=== PATIENT | female | born 1985 | race Caucasian/White ===

== ENCOUNTER 2022-02-08 05:47 | Inpatient (IN) ==
--- NOTE | 2022-02-08 06:21 | Emergency Department Note ---
Impression & Plan Suicidal ideation, Self-injurious behavior The case was signed out to Dr. Soler at change of shift ED Provider Note NAME: CHIQUITA ABREU AGE: 37 SEX: F ARRIVES VIA: Police Cruiser INFORMANT: [Patient] ED PROVIDER(S): Eliza Craig DO CHIEF COMPLAINT: Suicidal ideation PLAN: Disposition: The case was signed out at change of shift Condition: Fair MEDICAL DECISION MAKING: This is a 37-year-old female patient who presents to the emergency department tonight with police on a 302 warrant. The patient called crisis describing suicidal thoughts. The police were called and she was transported here. The superficial self-inflicted lacerations to the left forearm did not warrant any repair or specific medical treatment. The patient was medically cleared here in the emergency department and evaluated by the ED psychiatric case managers. We feel the patient warrants admission to an inpatient psychiatric facility. Triage Nursing notes reviewed and agree with them. I reviewed the 302. Vital Signs: reviewed and remarkable for [no significant abnormalities] Differential diagnosis: Suicidal ideation, mood disorder, thought disorder Diagnostics interpreted by me: Laboratory studies: [See below] [] HPI: 37/F arrives for evaluation of suicidal ideation. The patient describes having a rough night at work. 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. She left work early and returned to her hotel. She felt depressed and used an X-Acto knife to self-harm on her left forearm. The patient was having suicidal thoughts and contacted the National suicide hotline which referred her to [facility] crisis. They did an evaluation of the pa tient and contacted [facility] crisis which contact the [place] police to issue a 302 warrant. ROS: See above HPI for pertinent positives & negatives. A total of 10 systems reviewed and were otherwise negative. 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 HOME MEDICATIONS:See list ALLERGIES:None VITALS:See Below PHYSICAL EXAMINATION: HEENT: Head - normocephalic and atraumatic. Pupils are equal, round, and reactive to light. Extraocular eye muscles are intact, and sclera are anicteric. Nose - moist nasal mucosa without discharge. Mouth - moist buccal mucosa. Oropharynx is nonerythematous and there is no tonsillar exudate or edema noted. Neck: Supple; no cervical lymphadenopathy appreciated. Heart: Regular rate and rhythm. There is a normal S1 and S2 with no murmurs, clicks, or gallops appreciated. Lungs: Clear to auscultation bilaterally with no wheezes, rales, or rhonchi. Abdomen: Soft, completely nontender, nondistended, with good bowel sounds. There are no palpable pulsatile masses or hepatosplenomegaly. There is no guarding, rigidity, or rebound noted. Extremities: Superficial lacerations in the ventral aspect of the left forearm. There are easily palpable peripheral pulses. Skin: warm and dry with good turgor and no rashes. Psych: The patient seems somewhat depressed and angry that she is here. She admits to having suicidal thoughts earlier tonight but does not feel suicidal at this time. ED COURSE: Times/Reassessments: 555: The patient was evaluated in room A5. A complete history and physical was performed. Laboratory studies were drawn as above. The patient was felt to be medically cleared. The patient was evaluated by the ED psychiatric case managers. They are discussing whether the patient will admit herself voluntarily and are reviewing the 302 petitioning statement. The case will be signed out to Dr. Soler at change of shift. Eliza Craig, DO Past Med/Surg History Social History (System 02/08/22 @ 07:47 by Rubina Tadeo) Smoking Status: Never smoker Preferred Language: Micronesian Feels Safe at Home: Yes Home Meds Home Medications Medication Instructions Recorded Confirmed bupropion HCl 300 mg 24 hr tablet, 300 mg PO DAILY 02/08/22 02/08/22 extended release (Wellbutrin XL) clonazepam 0.5 mg tablet (Klonopin) 0.5 mg PO DIRECTED PRN 02/08/22 02/08/22 cyclobenzaprine 10 mg tablet 10 mg PO DIRECTED PRN MDD 30 02/08/22 02/08/22 dextroamphetamine-amphetamine 10 10 mg PO DIRECTED PRN 02/08/22 02/08/22 mg tablet (Adderall) dextroamphetamine-amphetamine ER 25 mg PO DAILY 02/08/22 02/08/22 25 mg 24hr capsule,extend release (Adderall XR) duloxetine 60 mg capsule,delayed 60 mg PO DAILY 02/08/22 02/08/22 release (Cymbalta) hydroxyzine HCl 50 mg tablet 50 mg PO TID PRN MDD 150 02/08/22 02/08/22 metoprolol succinate 25 mg 25 mg PO QPM 02/08/22 02/08/22 tablet,extended release 24 hr (Toprol XL) pantoprazole 40 mg tablet,delayed 40 mg PO DAILY 02/08/22 02/08/22 release Results & Data (ED) Vital Signs Vital Signs - 24 hr 02/08/22 06:02 02/08/22 06:37 02/08/22 08:07 Temperature 37.1 C 36.9 C Temperature Source Oral Oral Pulse Rate 97 H Pulse Rate [Finger] 107 H Respiratory Rate 20 18 18 Blood Pressure 138/89 Blood Pressure [Right Arm] 150/92 H Blood Pressure Mean 105 Blood Pressure Mean [Right Arm] 111 Pulse Oximetry 97 99 Oxygen Delivery Method Room Air Sepsis Recent Fever Within 48 Hours No Sepsis New/Unexplained Change in Mental Status No Sepsis Action Taken by Nursing No Action Required Laboratory Data Result diagrams: 02/08/22 06:30 02/08/22 06:30 Lab Results 02/08/22 02/08/22 02/08/22 Range/Units 06:30 06:30 06:30 WBC 9.72 (4.8-10.8) K/uL RBC 5.16 (4.2-5.4) M/uL Hgb 13.2 (12.0-16.0) g/dL Hct 41.0 (37-47) % MCV 79.5 L (80-100) fL MCH 25.6 (25-34) pg MCHC 32.2 (32-36) g/dL RDW Std Deviation 40.0 (36.4-46.3) fL RDW Coeff of Wendy 13.8 (11.5-14.5) % Plt Count 374 (130-400) K/uL MPV 9.3 (7.4-10.4) fL Immature Gran % (Auto) 0.3 % Neut % (Auto) 65.0 % Lymph % (Auto) 26.6 % Schley % (Auto) 6.0 % Eos % (Auto) 1.9 % Baso % (Auto) 0.2 % Neut # (Auto) 6.32 (1.4-6.5) K/uL Lymph # (Auto) 2.59 (1.2-3.4) K/uL Schley # (Auto) 0.58 (0.11-0.59) K/uL Eos # (Auto) 0.18 (0-0.5) K/uL Baso # (Auto) 0.02 (0-0.2) K/uL Immature Gran # (Auto) 0.03 H (0.00-0.02) K/uL Sodium 139 (136-145) mmol/L Potassium 3.5 (3.5-5.1) mmol/L Chloride 106 (98-107) mmol/L Carbon Dioxide 27 (21-32) mmol/L Anion Gap 6 (3-11) BUN 6 (6-23) mg/dl Creatinine 0.72 (0.6-1.2) mg/dl Est Cr Clr Drug Dosing 114.1 ml/min Est GFR ( Amer) 125.8 ml/min Est GFR (Non-Af Amer) 108.5 ml/min BUN/Creatinine Ratio 8.3 L (10-20) Glucose 95 (70-99(Fasting)) mg/dl Calcium 9.1 (8.5-10.1) mg/dl Total Bilirubin 0.5 (0.2-1.0) mg/dl AST 12 L (13-39) U/L ALT 10 (7-52) U/L Alkaline Phosphatase 82 (34-104) U/L Total Protein 6.9 (6.0-8.3) gm/dl Albumin 4.3 (3.4-5.0) gm/dl Globulin 2.6 (2.5-4.0) gm/dl Albumin/Globulin Ratio 1.7 (0.9-2) TSH 1.488 (0.300-4.500) uIu/ml Salicylates (3.0-30) mg/dl Acetaminophen (10-30) ug/ml Ethyl Alcohol mg/dL (<10.0) mg/dl SARS-CoV-2, RNA, NAAT (NEGATIVE) 02/08/22 02/08/22 02/08/22 Range/Units 06:30 06:30 06:30 WBC (4.8-10.8) K/uL RBC (4.2-5.4) M/uL Hgb (12.0-16.0) g/dL Hct (37-47) % MCV (80-100) fL MCH (25-34) pg MCHC (32-36) g/dL RDW Std Deviation (36.4-46.3) fL RDW Coeff of Wendy (11.5-14.5) % Plt Count (130-400) K/uL MPV (7.4-10.4) fL Immature Gran % (Auto) % Neut % (Auto) % Lymph % (Auto) % Schley % (Auto) % Eos % (Auto) % Baso % (Auto) % Neut # (Auto) (1.4-6.5) K/uL Lymph # (Auto) (1.2-3.4) K/uL Schley # (Auto) (0.11-0.59) K/uL Eos # (Auto) (0-0.5) K/uL Baso # (Auto) (0-0.2) K/uL Immature Gran # (Auto) (0.00-0.02) K/uL Sodium (136-145) mmol/L Potassium (3.5-5.1) mmol/L Chloride (98-107) mmol/L Carbon Dioxide (21-32) mmol/L Anion Gap (3-11) BUN (6-23) mg/dl Creatinine (0.6-1.2) mg/dl Est Cr Clr Drug Dosing ml/min Est GFR ( Amer) ml/min Est GFR (Non-Af Amer) ml/min BUN/Creatinine Ratio (10-20) Glucose (70-99(Fasting)) mg/dl Calcium (8.5-10.1) mg/dl Total Bilirubin (0.2-1.0) mg/dl AST (13-39) U/L ALT (7-52) U/L Alkaline Phosphatase (34-104) U/L Total Protein (6.0-8.3) gm/dl Albumin (3.4-5.0) gm/dl Globulin (2.5-4.0) gm/dl Albumin/Globulin Ratio (0.9-2) TSH (0.300-4.500) uIu/ml Salicylates < 3.0 L (3.0-30) mg/dl Acetaminophen < 3 L (10-30) ug/ml Ethyl Alcohol mg/dL < 10.0 (<10.0) mg/dl SARS-CoV-2, RNA, NAAT NEGATIVE (NEGATIVE) Discharge Plan Visit Data Chief Complaint: Mental Health Evaluation Stated Complaint: MHE ED Provider: Eliza Craig Discharge Problem: Suicidal ideation, Self-injurious behavior Forms Stand Alone Forms: [facility], [facility], Suicide Prevention Resources Prescriptions Prescriptions: No Action bupropion HCl [Wellbutrin XL] 300 mg tablet extended release 24 hr 300 mg PO DAILY RF: 0 hydroxyzine HCl 50 mg tablet 50 mg PO TID MDD 150 PRN (Reason: anxiety) RF: 0 pantoprazole 40 mg tablet,delayed release (DR/EC) 40 mg PO DAILY RF: 0 duloxetine [Cymbalta] 60 mg capsule,delayed release(DR/EC) 60 mg PO DAILY RF: 0 dextroamphetamine-amphetamine [Adderall XR] 25 mg capsule,extended release 24hr 25 mg PO DAILY RF: 0 dextroamphetamine-amphetamine [Adderall] 10 mg tablet 10 mg PO DIRECTED PRN (Reason: See Pharmacy Information) RF: 0 clonazepam [Klonopin] 0.5 mg tablet 0.5 mg PO DIRECTED PRN (Reason: Anxiety) RF: 0 cyclobenzaprine 10 mg tablet 10 mg PO DIRECTED MDD 30 PRN (Reason: Muscle Spasm) RF: 0 metoprolol succinate [Toprol XL] 25 mg tablet extended release 24 hr 25 mg PO QPM RF: 0 Referrals Referrals: PCP,NO [Physician] -
[2022-02-08 06:59] LABS: Basophils # (auto) 0.02 K/uL (0-0.2); Basophils % (auto) 0.2 %; Eosinophils # (auto) 0.18 K/uL (0-0.5); Eosinophils % (auto) 1.9 %; Hemoglobin 13.2 g/dL (12.0-16.0); Immature Granulocytes # (auto) 0.03 K/uL (0.00-0.02); Immature Granulocytes % (auto) 0.3 %; Lymphocytes # (auto) 2.59 K/uL (1.2-3.4); Lymphocytes % (auto) 26.6 %; Mean Corpuscular Hemoglobin 25.6 pg (25-34); Mean Corpuscular Hgb Conc 32.2 g/dL (32-36); Mean Corpuscular Volume 79.5 fL (80-100); Mean Platelet Volume 9.3 fL (7.4-10.4); Monocytes # (auto) 0.58 K/uL (0.11-0.59); Neutrophils # (auto) 6.32 K/uL (1.4-6.5); Platelet Count 374 K/uL (130-400); RDW Coefficient of Variation 13.8 % (11.5-14.5); Red Blood Count 5.16 M/uL (4.2-5.4); White Blood Count 9.72 K/uL (4.8-10.8)
[2022-02-08 07:17] LABS: Acetaminophen < 3 ug/ml (10-30); Salicylate < 3.0 mg/dl (3.0-30)
[2022-02-08 07:22] LABS: Albumin Globulin Ratio 1.7 (0.9-2); Albumin Level 4.3 gm/dl (3.4-5.0); BUN Creatinine Ratio 8.3 (10-20); Bilirubin,Total 0.5 mg/dl (0.2-1.0); Calcium 9.1 mg/dl (8.5-10.1); Creatinine Clr Calc Pharmacy 114.1 ml/min; Est GFR (African American) 125.8 ml/min; Est GFR (Non-African American) 108.5 ml/min; Globulin 2.6 gm/dl (2.5-4.0); Potassium 3.5 mmol/L (3.5-5.1); Total Protein 6.9 gm/dl (6.0-8.3)
[2022-02-08 10:05] LABS: Appearance Urine Clear (Clear); Bacteria Urine Automated Negative (Negative); Bilirubin Urine Negative (Negative); Blood Urine Negative (Negative); Color Urine Yellow; Glucose Urine UA Negative (Negative); Ketones Urine Negative (Negative); Leukocyte Esterase Urine Trace (Negative); Nitrite Urine Negative (Negative); Protein Urine Negative (Negative); RBC Urine Automated 0-4 /hpf (0-4); Urobilinogen Urine Negative (Negative)
[2022-02-08] MEDS ORDERED: ACETAMINOPHEN 500 MG TAB PO STA (10:48)
[2022-02-08 10:49] LABS: Amphetamines+Metham, Urine Neg (Neg); Barbiturates, Urine Neg (Neg); Benzodiazepine, Urine Neg (Neg); Cocaine, Urine Neg (Neg); MDMA (Ecstacy), Urine Pos (Neg); Methadone, Urine Neg (Neg); Opiate, Urine Neg (Neg); Phencyclidine, Urine Neg (Neg)
[2022-02-08] MEDS ORDERED: DULoxetine HCL 60 MG CAP PO STA (10:59)
[2022-02-08] MEDS ORDERED: buPROPion XL 300 MG TABCR PO STA (10:59)
[2022-02-08] MEDS ORDERED: PANTOprazole 40 MG TAB PO STA (10:59)
[2022-02-08] MEDS ORDERED: AMPHETAMINE ASP/SULF/DEXTRAMPH ER 20 MG CAP PO STA (10:59)
[2022-02-08] MEDS ORDERED: hydrOXYzine HCl 25 MG TAB PO PRN ×3 (11:30→11:32)
[2022-02-08] MEDS ORDERED: BISMUTH SUBSALICYLATE LIQD 236 ML PO PRN (11:30)
[2022-02-08] MEDS ORDERED: ALUMINUM/MAGNESIUM SUSP 30 ML UDC PO PRN (11:30)
[2022-02-08] MEDS ORDERED: MAGNESIUM HYDROXIDE SUSP 30 ML UDC PO PRN (11:30)
[2022-02-08] MEDS ORDERED: SODIUM CHLORIDE 0.65% NA SOLN 45 ML (OCEAN) PRN (11:30)
[2022-02-08] MEDS ORDERED: CYCLOBENZAPRINE HCL 10 MG TAB PO PRN (11:32)
--- NOTE | 2022-02-08 11:42 | History & Physical ---
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 shift. (1) Major depression: The patient was admitted to the [facility]) on q15 min checks (behavioral with suicide precautions) for safety. The patient will participate in group, recreational, and milieu therapies and will be offered additional individual and family sessions as clinically appropriate. continue home medications but favor Vistaril over Klonopin and hold Adderalls. Laxative. 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 She is currently exhausted from time in ED and would prefer to provide additional history tomorrow. 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 As she resides in [facility] she stays in a hotel on the nights she works. She felt overwhelmed yesterday, told the ED work was probably building up, and returned to her hotel and experienced acute SI and cut self on her left forearm with an Xacto-knife. She called crisis and was transported to ED for assessment with a [address]. The patient verbalized feeling some better in the ED and was hoping to avoid inpatient care, at least in part because it's her birthday. Her medications are managed by a physician's assistant passenger locomotive engineer at her PCP office. She denies recent changes (since June) and would prefer to continue her medications unchanged as previous hospitalization (3 last year) were reportedly precipitated by "psychotic symptoms" during med changes. She denies side effects to her current medications but states that she is constipated and has been referred to a call center specialist for w/u of unspecified tachy or "POTS". She does describe dizziness at times. Reviewed that Adderall XR will be held. Past Psychiatric History Current Psychiatric Diagnosis: MDD; [facility] Outpatient Services: pcp for meds only Previous Psych Admissions: at least 4--3 at [facility] in 2020 Do You Have Access To A Gun?: No Describe Attempts in the Past: OD attempt in 2019 (reports taking extra BP meds but not enough 2 harm Past Medication Trials: did not list at this time Allergies Allergy/AdvReac Type Severity Reaction Status Date / Time Latex, Natural Rubber Allergy Intermediate Rash Verified 02/08/22 08:42 lorazepam [From Ativan] Allergy Intermediate Psychosis Verified 02/08/22 08:42 NSAIDS (Non-Steroidal AdvReac Mild Gastrointestinal Verified 02/08/22 08:42 Anti-Inflamma Upset Home Medications Medication Instructions Recorded Confirmed Type bupropion HCl 300 mg 24 hr tablet, 300 mg PO DAILY 02/08/22 02/08/22 History extended release (Wellbutrin XL) clonazepam 0.5 mg tablet (Klonopin) 0.5 mg PO DIRECTED PRN 02/08/22 02/08/22 History cyclobenzaprine 10 mg tablet 10 mg PO DIRECTED PRN MDD 30 02/08/22 02/08/22 History dextroamphetamine-amphetamine 10 10 mg PO DIRECTED PRN 02/08/22 02/08/22 History mg tablet (Adderall) dextroamphetamine-amphetamine ER 25 mg PO DAILY 02/08/22 02/08/22 History 25 mg 24hr capsule,extend release (Adderall XR) duloxetine 60 mg capsule,delayed 60 mg PO DAILY 02/08/22 02/08/22 History release (Cymbalta) hydroxyzine HCl 50 mg tablet 50 mg PO TID PRN MDD 150 02/08/22 02/08/22 History metoprolol succinate 25 mg 25 mg PO QPM 02/08/22 02/08/22 History tablet,extended release 24 hr (Toprol XL) pantoprazole 40 mg tablet,delayed 40 mg PO DAILY 02/08/22 02/08/22 History release Family History Family History of: Bipolar Family Mental Health History Comment: Mom and Brother Bipolar Disorder Alcohol History Hx of Alcohol Use Over the Past 12 Months: No Smoking Use Smoking Status: Never smoker Substance History Hx of Prescription Med Misuse Over the Past 12 Months: No Hx of Over the Counter Med Misuse Over the Past 12 Months: No Hx of Inhalent Misuse Over the Past 12 Months: No Hx of Organic Substance Use Over the Past 12 Months: No Hx of Illegal Substances/Street Drug Use Over Past 12 Months: No Personal History Living Arrangements: Home 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 Number Of Children: 1 daughter (9), stays with her mother while she works/is here Current Legal Problems: No Hx Legal Problems: No Hx Traumatic Life Events: Yes Psychological Trauma History Comment: states that working on a unit with restraint/seclusion is somewhat traumatizing Patient History Medical History (Updated 02/08/22 @ 13:49 by Skylar Matute MD) Tachycardia Social History (System 02/08/22 @ 07:47 by Rubina Tadeo) Smoking Status: Never smoker Preferred Language: Kinyarwanda Communication Ability: Effective Research Environmental Scientist Required: No Beliefs That Will Affect Care: None Feels Safe at Home: Yes Assistive Devices: None Review of Systems Review of Systems: All systems reviewed & are unremarkable except as noted in HPI & below Physical Exam Psychiatric: Orientation: alert and oriented x 3 Apperance: appropriately dressed and appropriately groomed Eye Contact: good eye contact Motor Behavior: no abnormal motor movements Speech: normal rate/rhythm/volume of speech Affect: + depressed affect Mood: + depressed mood Thought Process: goal directed thought process Thought Content: reality based without delusions Suicidal Thoughts: denies suicidal thoughts Homicidal Thoughts: denies homicidal thoughts Hallucinations: no auditory hallucinations and no visual hallucinations Cognition: attention grossly intact and language grossly intact Estimated Intelligence: consistent with education level Vital Signs (Past 24 Hours): Last Vital Signs Temp 36.9 C 02/08/22 10:00 Pulse 98 H 02/08/22 10:00 Resp 16 02/08/22 10:00 BP 120/73 02/08/22 10:00 Pulse Ox 99 02/08/22 10:00 Exam Statement: A physical exam was performed in the ED by Dr. Craig for the purposes of medical clearance. I accept that physical as correct and adequate for the purposes of the inpatient physical exam. Results & Data (U) Laboratory Results Laboratory Results - last 24 hr 02/08/22 02/08/22 02/08/22 06:30 06:30 06:30 WBC 9.72 RBC 5.16 Hgb 13.2 Hct 41.0 MCV 79.5 L MCH 25.6 MCHC 32.2 RDW Std Deviation 40.0 RDW Coeff of Ewndy 13.8 Plt Count 374 MPV 9.3 Immature Gran % (Auto) 0.3 Neut % (Auto) 65.0 Lymph % (Auto) 26.6 [place] % (Auto) 6.0 Eos % (Auto) 1.9 Baso % (Auto) 0.2 Neut # (Auto) 6.32 Lymph # (Auto) 2.59 [place] # (Auto) 0.58 Eos # (Auto) 0.18 Baso # (Auto) 0.02 Immature Gran # (Auto) 0.03 H Sodium 139 Potassium 3.5 Chloride 106 Carbon Dioxide 27 Anion Gap 6 BUN 6 Creatinine 0.72 Est Cr Clr Drug Dosing 114.1 Est GFR ( Amer) 125.8 Est GFR (Non-Af Amer) 108.5 BUN/Creatinine Ratio 8.3 L Glucose 95 Calcium 9.1 Total Bilirubin 0.5 AST 12 L ALT 10 Alkaline Phosphatase 82 Total Protein 6.9 Albumin 4.3 Globulin 2.6 Albumin/Globulin Ratio 1.7 TSH 1.488 Urine Color Urine Appearance Urine pH Ur Specific Ary Urine Protein Urine Glucose (UA) Urine Ketones Urine Blood Urine Nitrite Urine Bilirubin Urine Urobilinogen Ur Leukocyte Esterase Urine WBC (Auto) Urine RBC (Auto) U Hyaline Cast (Auto) U Epithel Cells (Auto) Urine Bacteria (Auto) POC Ur Test Salicylates Urine Opiates Screen Ur Methadone, Qual Acetaminophen Urine Barbiturates Ur Phencyclidine (PCP) U Amphetamin/Meth Scrn Urine MDEA MDMA (Ecstasy) Screen MDMA Urine MDMA U Benzodiazepines Scrn Ur Cocaine Metabolite U Marijuana (THC) Screen Ethyl Alcohol mg/dL SARS-CoV-2, RNA, NAAT 02/08/22 02/08/22 02/08/22 06:30 06:30 06:30 WBC RBC Hgb Hct MCV MCH MCHC RDW Std Deviation RDW Coeff of Wendy Plt Count MPV Immature Gran % (Auto) Neut % (Auto) Lymph % (Auto) [place] % (Auto) Eos % (Auto) Baso % (Auto) Neut # (Auto) Lymph # (Auto) [place] # (Auto) Eos # (Auto) Baso # (Auto) Immature Gran # (Auto) Sodium Potassium Chloride Carbon Dioxide Anion Gap BUN Creatinine Est Cr Clr Drug Dosing Est GFR ( Amer) Est GFR (Non-Af Amer) BUN/Creatinine Ratio Glucose Calcium Total Bilirubin AST ALT Alkaline Phosphatase Total Protein Albumin Globulin Albumin/Globulin Ratio TSH Urine Color Urine Appearance Urine pH Ur Specific Ary Urine Protein Urine Glucose (UA) Urine Ketones Urine Blood Urine Nitrite Urine Bilirubin Urine Urobilinogen Ur Leukocyte Esterase Urine WBC (Auto) Urine RBC (Auto) U Hyaline Cast (Auto) U Epithel Cells (Auto) Urine Bacteria (Auto) POC Ur Test Salicylates < 3.0 L Urine Opiates Screen Ur Methadone, Qual Acetaminophen < 3 L Urine Barbiturates Ur Phencyclidine (PCP) U Amphetamin/Meth Scrn Urine MDEA MDMA (Ecstasy) Screen MDMA Urine MDMA U Benzodiazepines Scrn Ur Cocaine Metabolite U Marijuana (THC) Screen Ethyl Alcohol mg/dL < 10.0 SARS-CoV-2, RNA, NAAT NEGATIVE 02/08/22 02/08/22 02/08/22 09:39 09:39 09:39 WBC RBC Hgb Hct MCV MCH MCHC RDW Std Deviation RDW Coeff of Wendy Plt Count MPV Immature Gran % (Auto) Neut % (Auto) Lymph % (Auto) [place] % (Auto) Eos % (Auto) Baso % (Auto) Neut # (Auto) Lymph # (Auto) [place] # (Auto) Eos # (Auto) Baso # (Auto) Immature Gran # (Auto) Sodium Potassium Chloride Carbon Dioxide Anion Gap BUN Creatinine Est Cr Clr Drug Dosing Est GFR ( Amer) Est GFR (Non-Af Amer) BUN/Creatinine Ratio Glucose Calcium Total Bilirubin AST ALT Alkaline Phosphatase Total Protein Albumin Globulin Albumin/Globulin Ratio TSH Urine Color Yellow Urine Appearance Clear Urine pH 6.0 Ur Specific Ary 1.010 Urine Protein Negative Urine Glucose (UA) Negative Urine Ketones Negative Urine Blood Negative Urine Nitrite Negative Urine Bilirubin Negative Urine Urobilinogen Negative Ur Leukocyte Esterase Trace H Urine WBC (Auto) 1-5 Urine RBC (Auto) 0-4 U Hyaline Cast (Auto) 1-5 U Epithel Cells (Auto) 5-10 H Urine Bacteria (Auto) Negative POC Ur Test Salicylates Urine Opiates Screen Neg Ur Methadone, Qual Neg Acetaminophen Urine Barbiturates Neg Ur Phencyclidine (PCP) Neg U Amphetamin/Meth Scrn Neg Urine MDEA Pending MDMA (Ecstasy) Screen Pos H MDMA Pending Urine MDMA Pending U Benzodiazepines Scrn Neg Ur Cocaine Metabolite Neg U Marijuana (THC) Screen Neg Ethyl Alcohol mg/dL SARS-CoV-2, RNA, NAAT 02/08/22 09:44 WBC RBC Hgb Hct MCV MCH MCHC RDW Std Deviation RDW Coeff of Wendy Plt Count MPV Immature Gran % (Auto) Neut % (Auto) Lymph % (Auto) [place] % (Auto) Eos % (Auto) Baso % (Auto) Neut # (Auto) Lymph # (Auto) [place] # (Auto) Eos # (Auto) Baso # (Auto) Immature Gran # (Auto) Sodium Potassium Chloride Carbon Dioxide Anion Gap BUN Creatinine Est Cr Clr Drug Dosing Est GFR ( Amer) Est GFR (Non-Af Amer) BUN/Creatinine Ratio Glucose Calcium Total Bilirubin AST ALT Alkaline Phosphatase Total Protein Albumin Globulin Albumin/Globulin Ratio TSH Urine Color Urine Appearance Urine pH Ur Specific Ary Urine Protein Urine Glucose (UA) Urine Ketones Urine Blood Urine Nitrite Urine Bilirubin Urine Urobilinogen Ur Leukocyte Esterase Urine WBC (Auto) Urine RBC (Auto) U Hyaline Cast (Auto) U Epithel Cells (Auto) Urine Bacteria (Auto) POC Ur Test NEG Salicylates Urine Opiates Screen Ur Methadone, Qual Acetaminophen Urine Barbiturates Ur Phencyclidine (PCP) U Amphetamin/Meth Scrn Urine MDEA MDMA (Ecstasy) Screen MDMA Urine MDMA U Benzodiazepines Scrn Ur Cocaine Metabolite U Marijuana (THC) Screen Ethyl Alcohol mg/dL SARS-CoV-2, RNA, NAAT Current Inpatient Medications Current Inpatient Medications: Current Inpatient Medications Acetaminophen (Acetaminophen 325 Mg Tab) 650 mg PO Q4H PRN PRN Reason: Headache or Minor Fever Stop: 03/10/22 11:29 Al Hydrox/Mg Hydrox/Simethicone (Aluminum/Magnesium Susp 30 Ml Udc) 30 ml PO Q4H PRN PRN Reason: GI Upset Stop: 03/10/22 11:29 Bismuth Subsalicylate (Bismuth Subsalicylate Liqd 236 Ml) 15 ml PO PRN PRN PRN Reason: Loose Stool Stop: 03/10/22 11:29 Bupropion HCl (Bupropion Xl 300 Mg Tabcr) 300 mg PO DAILY ALBINO Stop: 03/11/22 08:59 Cyclobenzaprine HCl (Cyclobenzaprine Hcl 10 Mg Tab) 10 mg PO DAILY PRN PRN Reason: Muscle Spasm Stop: 03/10/22 11:31 Duloxetine HCl (Duloxetine Hcl 60 Mg Cap) 60 mg PO DAILY ALBINO Stop: 03/11/22 08:59 Hydroxyzine HCl (Hydroxyzine Hcl 25 Mg Tab) 50 mg PO HSZ PRN PRN Reason: Insomnia Stop: 03/10/22 11:29 Hydroxyzine HCl (Hydroxyzine Hcl 25 Mg Tab) 50 mg PO TID PRN PRN Reason: anxiety Stop: 03/10/22 11:31 Magnesium Hydroxide (Magnesium Hydroxide Susp 30 Ml Udc) 30 ml PO DAILY PRN PRN Reason: Constipation Stop: 03/10/22 11:29 Metoprolol Succinate (Metoprolol Succ 25mg Ext Rel Tab) 25 mg PO QPM ALBINO Stop: 03/10/22 20:59 Pantoprazole Sodium (Pantoprazole 40 Mg Tab) 40 mg PO DAILY ALBINO Stop: 03/11/22 08:59 Sodium Chloride (Sodium Chloride 0.65% Na Soln 45 Ml ([place])) 1 - 2 sprays NA PRN PRN PRN Reason: Nasal Dryness/Congestion Stop: 03/10/22 11:29
[2022-02-08] MEDS ORDERED: bisacodyL 5 MG TABEC PO PRN (13:51)
[2022-02-08] MEDS ORDERED: METOPROLOL SUCC 25MG EXT REL TAB PO SCH (21:00)
[2022-02-09] MEDS: ACETAMINOPHEN 325 MG TAB PO PRN ×2 (02:34→17:35)
[2022-02-09] MEDS: DULoxetine HCL 60 MG CAP PO SCH (09:00)
[2022-02-09] MEDS: PANTOprazole 40 MG TAB PO SCH (09:00)
[2022-02-09] MEDS: buPROPion XL 300 MG TABCR PO SCH (09:00)
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
[2022-02-09] MEDS ORDERED: clonazePAM 0.5 MG TAB PO PRN (11:03)
--- NOTE | 2022-02-09 15:03 | Communication Note ---
Date of Service: February 09, 2022 Since last contact, patient disclosed to mental health counselor that she had a paper clip from prior to arrival on unit in her pillow case. She also admitted to having skiver box toe in her possession in case she wanted to self-harm at work. She has already agreed to dispose of the item. I was then notified by sw that patient was refusing her family meeting with mother. She still has valid NADEEN and will obtain collateral as patient's history is evolving. Patient will remain hospitalized for further treatment/observation on 72 hour notice given high risk behaviors and need for additional collateral to determine need for involuntary commitment and/or indication for referral to nursing peer health program.
[2022-02-10] MEDS: ACETAMINOPHEN 325 MG TAB PO PRN (02:13)
[2022-02-10] MEDS: DULoxetine HCL 60 MG CAP PO SCH (08:52)
[2022-02-10] MEDS: buPROPion XL 300 MG TABCR PO SCH (08:52)
[2022-02-10] MEDS: PANTOprazole 40 MG TAB PO SCH (08:53)
--- NOTE | 2022-02-10 09:09 | Psychiatric Progress Note ---
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 shift. 02/09/22: denies SI but did engaged in minor SIB over upset about confinement, s igned 72 hr notice this am. (1) Major depression: (2) Post traumatic stress disorder (PTSD): 02/09/22: Reviewed goals of short term hospitalization vs. equipment operator intermodal yard therapy as complex trauma takes time to heal, unclear how much of her symptoms are PTSD vs. borderline personality. States she was diagnosed with ADHD 8 years ago. Reviewed that restart of stimulant is deferred to outpatient provider as she reported need for cards consult. She is requesting klonopin hs prn if remains hospitalized. 02/08/22: The [facility]) on q15 min checks (behavioral with suicide precautions) for safety. The patient will participate in group, recreational, and milieu therapies and will be offered additional individual and family sessions as clinically appropriate. continue home medications but favor Vistaril over Klonopin and hold Adderalls. Laxative. 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 Chief Complaint "[]". Review of Systems Sleep Information Total Hours of Sleep: 5.5 Meal Information Percent Meal Consumed - Breakfast: 30 Percent Meal Consumed - Lunch: 25 Percent Meal Consumed - Dinner: 30 Subjective Subjective Patient was seen & assessed and interval progress reviewed with treatment team nursing and social work. Upset last night due to desire to leave and angry but no self-harming nor head banging last night. Still remains very focused on discharge. Got prn Klonopin last night. Physical Exam Psychiatric Orientation: alert and oriented x 3 Apperance: appropriately dressed and appropriately groomed Eye Contact: good eye contact Motor Behavior: no abnormal motor movements Speech: normal rate/rhythm/volume of speech Affect: + depressed affect Mood: + depressed mood Thought Process: goal directed thought process Thought Content: reality based without delusions Suicidal Thoughts: denies suicidal thoughts Homicidal Thoughts: denies homicidal thoughts Hallucinations: no auditory hallucinations and no visual hallucinations Cognition: attention grossly intact and language grossly intact Estimated Intelligence: consistent with education level Vital Signs (Past 24 Hours) Last Vital Signs Temp 36.8 C 02/10/22 06:35 Pulse 94 H 02/10/22 06:35 Resp 18 02/10/22 06:35 BP 117/79 02/10/22 06:35 Pulse Ox 100 02/08/22 11:43 Results & Data ([facility]) Current Inpatient Medications Current Inpatient Medications: Current Inpatient Medications Acetaminophen (Acetaminophen 325 Mg Tab) 650 mg PO Q4H PRN PRN Reason: Headache or Minor Fever Stop: 03/10/22 11:29 Last Admin: 02/10/22 02:13 Dose: 650 mg Documented by: Al Hydrox/Mg Hydrox/Simethicone (Aluminum/Magnesium Susp 30 Ml Udc) 30 ml PO Q4H PRN PRN Reason: GI Upset Stop: 03/10/22 11:29 Bisacodyl (Bisacodyl 5 Mg Tabec) 5 mg PO TID PRN PRN Reason: Constipation Stop: 03/10/22 13:50 Last Admin: 02/10/22 02:14 Dose: 5 mg Documented by: Bismuth Subsalicylate (Bismuth Subsalicylate Liqd 236 Ml) 15 ml PO PRN PRN PRN Reason: Loose Stool Stop: 03/10/22 11:29 Bupropion HCl (Bupropion Xl 300 Mg Tabcr) 300 mg PO DAILY ALBINO Stop: 03/11/22 08:59 Last Admin: 02/10/22 08:52 Dose: 300 mg Documented by: Clonazepam (Clonazepam 0.5 Mg Tab) 0.5 mg PO PM PRN PRN Reason: Anxiety Stop: 03/11/22 11:02 Last Admin: 02/09/22 20:42 Dose: 0.5 mg Documented by: Cyclobenzaprine HCl (Cyclobenzaprine Hcl 10 Mg Tab) 10 mg PO DAILY PRN PRN Reason: Muscle Spasm Stop: 03/10/22 11:31 Duloxetine HCl (Duloxetine Hcl 60 Mg Cap) 60 mg PO DAILY ALBINO Stop: 03/11/22 08:59 Last Admin: 02/10/22 08:52 Dose: 60 mg Documented by: Hydroxyzine HCl (Hydroxyzine Hcl 25 Mg Tab) 50 mg PO HSZ PRN PRN Reason: Insomnia Stop: 03/10/22 11:29 Last Admin: 02/10/22 02:14 Dose: 50 mg Documented by: Hydroxyzine HCl (Hydroxyzine Hcl 25 Mg Tab) 50 mg PO TID PRN PRN Reason: anxiety Stop: 03/10/22 11:31 Last Admin: 02/08/22 21:35 Dose: 50 mg Documented by: Magnesium Hydroxide (Magnesium Hydroxide Susp 30 Ml Udc) 30 ml PO DAILY PRN PRN Reason: Constipation Stop: 03/10/22 11:29 Pantoprazole Sodium (Pantoprazole 40 Mg Tab) 40 mg PO DAILY ALBINO Stop: 03/11/22 08:59 Last Admin: 02/10/22 08:53 Dose: 40 mg Documented by: Sodium Chloride (Sodium Chloride 0.65% Na Soln 45 Ml ([place])) 1 - 2 sprays NA PRN PRN PRN Reason: Nasal Dryness/Congestion Stop: 03/10/22 11:29 Mental Health & Subst Abuse Tx Psychiatrist Name of Psychiatrist: [facility] Psychiatrist's Psychiatric Appointment Comment: will be contacted by registration to schedule in 3-5 days after reviewed Therapist Name of Therapist: [facility] Therapist's Therapy Appointment Comment: will be contacted by registration to schedule in 3- 5 days after reviewed Delivery And Mail Sorter Name of Delivery And Mail Sorter: Marilu (unsure of last name) at [facility] Post Discharge Appointments Primary Care Physician Name Of Family Doctor: [facility] Outpatient- Pierre Mcqueen Primary Care Date of Appointment with PCP: 02/16/22 Time of Appointment with PCP: 11:00 am Provider Appointment Comment: [address] [facility] [address],[place] Contact Information Discharge Discharge Address: [address] [place] [address] [address], [place], [place] Contact Information Comment: [facility]: [id number] [facility] [place]
--- NOTE | 2022-02-10 12:56 | Discharge Summary ---
Date of Service February 10, 2022 History of Present Illness Per H&P by Dr. 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 As she resides in [facility] she stays in a hotel on the nights she works. She felt overwhelmed yesterday, told the ED work was probably building up, and returned to her hotel and experienced acute SI and cut self on her left forearm with an Xacto-knife. She called crisis and was transported to ED for assessment with a [address]. The patient verbalized feeling some better in the ED and was hoping to avoid inpatient care, at least in part because it's her birthday. Her medications are managed by a physician's bilingual office assistant at her PCP office. She denies recent changes (since June) and would prefer to continue her medications unchanged as previous hospitalization (3 last year) were reportedly precipitated by "psychotic symptoms" during med changes. She denies side effects to her current medications but states that she is constipated and has been referred to a hydrotechnical specialist for w/u of unspecified tachy or "POTS". She does describe dizziness at times. Reviewed that Adderall XR will be held. Physical Exam Vital Signs (Past 24 Hours) Last Vital Signs Temp 36.8 C 02/10/22 06:35 Pulse 94 H 02/10/22 06:35 Resp 18 02/10/22 06:35 BP 117/79 02/10/22 06:35 Pulse Ox 100 02/08/22 11:43 See admission H&P and DOD summary. Principal Diagnosis Major Depressive Disorder, Post Traumatic Stress Disorder Psychiatric Data See daily stay summary. In short, patient was initially overwhelmed by being admitted and engaged in some self-harm via head-banging and signed a 72 hour notice. On 02/09/22 she appeared to be stabilizing but then declined participation in a planned family meeting and reported some ongoing thoughts of self-harm though she did not engage in any self-harm. On the day of discharge she was actively engaged with the social/therapeutic milieu of the unit and cooperative with care. She was able to insightfully reflect on how triggers of past trauma experiences, including seeing a TV program which minimized the impact of COVID-19, lead to significant increase in mood symptoms and acute distress leading to her self-harm. She actively participated in a family meeting and safety planning. She denied any thoughts of self-harm and stated her plan and intent to avoid having any objects with which to self-harm, such as craft knife, at home/her hotel/when she returns to work. Reviewed other strategies that could be used in cases of thoughts or urges for self-harm which she identified as texting a friend, eating chocolate or using rubber band on her wrist. No medication changes were made nor new prescriptions sent as she stated she had enough of her medications at home. Discussed plan to avoid resuming stimulant until she has further cardiac workup as she had discussed with her PCP prior to admission. A family session was held and safety plan was completed prior to discharge. On the day before and of discharge she consistently denied any SI nor any thoughts of self-harm. She actively and insightfully participated in safety planning and in discussions about ways to seek support and recognizing warning signs and utilizing coping skills. Reviewed mobile apps that could be used for additional ways to have their safety plan and contacts easily available should thoughts of SI or self-harm re-emerge in the future. Discussed PA nursing peer assistance resource which she was encouraged to reach out to and she stated intent to do so for additional support in coping with depression and PTSD and to potentially connect with other resources for health care providers with trauma related to treating patients with COVID-19 during the pandemic. Reviewed importance of seeking emergency care should SI intensify, worsen or should they feel unsafe in the future which they agree to do. On the day of discharge she stated her mood was "good" and remained future-oriented including seeing her daughter, spending time with her family, returning to her job and engaging in aftercare appointments with her primary care provider and awaiting contact once she is able to start with therapy. Day of Discharge Assessment Today the patient voices readiness for discharge. They note improvement in mood and anxiety. They deny thoughts of harm to self or others. Thoughts are organized and they are clinically improved from admission. There is no evidence of psychosis. They improved in the hospital with support. They agree to take medications as prescribed and keep follow-up appointments. At the time of the discharge they are deemed to be stable and appropriate for outpatient level of care. They are not deemed to be at imminent risk of harm to self or others. They are aware of emergency and crisis services. Knows to call 911 or go to nearest emergency care center if in a crisis which cannot be handled as an outpatient. Transition of Care Transition Of Care Record: was reviewed with the patient Advance Directives Advance Directives Information Provided: Yes Advance Directives: No Mental Health Advance Directive: No Advance Directives on File: No Living Will: No Power of Cia Agent: No Advance Directives Reason:: Declines as Mental Health Visit. Suicide Risk Level Suicide Risk Level: Low (q15 min observation checks) Risk Factors Assessment Acute risk is low given improvement in mood and denial of SI, hopefulness, reduction in PTSD symptoms. Chronic risk is moderate given extensive non- modifiable risk factors including psychiatric co-morbid diagnoses, periods of impulsivity, prior attempt, hx self-harm,emotional reactivity, prior psychiatric hospitalizations, mood disorder, possible cluster B personality disorder traits including hyperactive amygdala response but also with protective factors of her daughter and close family supports and employed. Counseled on ways to reduce acute and chronic risk including engaging with outpatient providers, increasing support by utilizing PA nursing peer assistance resources, using safety plan if needed, utilizing supports, taking medication, and using coping skills. Modifiable risk factors of SI, PTSD symptoms and depression were addressed during hospitalization through development of new coping skills, family meeting, and safety planning. Male: No : Yes Do You Have Access To A Gun?: No Health Problems: No Mental Health Diagnoses: Yes Previous Attempt: Yes Family History of Suicide: No Previous Psychiatric Hospitalization: Yes Hopelessness: No Protective Factors Assessment Responsible for Young Children: Yes Employed: Yes (RN at [employer]) Stable Relationships: Yes Supportive Family: Yes Good Rapport with Provider: Yes Discharge Data Lab Results 02/08/22 02/08/22 02/08/22 06:30 06:30 06:30 WBC 9.72 RBC 5.16 Hgb 13.2 Hct 41.0 MCV 79.5 L MCH 25.6 MCHC 32.2 RDW Std Deviation 40.0 RDW Coeff of Wendy 13.8 Plt Count 374 MPV 9.3 Immature Gran % (Auto) 0.3 Neut % (Auto) 65.0 Lymph % (Auto) 26.6 [place] % (Auto) 6.0 Eos % (Auto) 1.9 Baso % (Auto) 0.2 Neut # (Auto) 6.32 Lymph # (Auto) 2.59 [place] # (Auto) 0.58 Eos # (Auto) 0.18 Baso # (Auto) 0.02 Immature Gran # (Auto) 0.03 H Sodium 139 Potassium 3.5 Chloride 106 Carbon Dioxide 27 Anion Gap 6 BUN 6 Creatinine 0.72 Est Cr Clr Drug Dosing 114.1 Est GFR ( Amer) 125.8 Est GFR (Non-Af Amer) 108.5 BUN/Creatinine Ratio 8.3 L Glucose 95 Calcium 9.1 Total Bilirubin 0.5 AST 12 L ALT 10 Alkaline Phosphatase 82 Total Protein 6.9 Albumin 4.3 Globulin 2.6 Albumin/Globulin Ratio 1.7 TSH 1.488 Urine Color Urine Appearance Urine pH Ur Specific [place] Urine Protein Urine Glucose (UA) Urine Ketones Urine Blood Urine Nitrite Urine Bilirubin Urine Urobilinogen Ur Leukocyte Esterase Urine WBC (Auto) Urine RBC (Auto) U Hyaline Cast (Auto) U Epithel Cells (Auto) Urine Bacteria (Auto) POC Ur Test Salicylates Urine Opiates Screen Ur Methadone, Qual Acetaminophen Urine Barbiturates Ur Phencyclidine (PCP) U Amphetamin/Meth Scrn MDMA (Ecstasy) Screen U Benzodiazepines Scrn Ur Cocaine Metabolite U Marijuana (THC) Screen Ethyl Alcohol mg/dL SARS-CoV-2, RNA, NAAT 02/08/22 02/08/22 02/08/22 06:30 06:30 06:30 WBC RBC Hgb Hct MCV MCH MCHC RDW Std Deviation RDW Coeff of Wendy Plt Count MPV Immature Gran % (Auto) Neut % (Auto) Lymph % (Auto) [place] % (Auto) Eos % (Auto) Baso % (Auto) Neut # (Auto) Lymph # (Auto) [place] # (Auto) Eos # (Auto) Baso # (Auto) Immature Gran # (Auto) Sodium Potassium Chloride Carbon Dioxide Anion Gap BUN Creatinine Est Cr Clr Drug Dosing Est GFR ( Amer) Est GFR (Non-Af Amer) BUN/Creatinine Ratio Glucose Calcium Total Bilirubin AST ALT Alkaline Phosphatase Total Protein Albumin Globulin Albumin/Globulin Ratio TSH Urine Color Urine Appearance Urine pH Ur Specific [place] Urine Protein Urine Glucose (UA) Urine Ketones Urine Blood Urine Nitrite Urine Bilirubin Urine Urobilinogen Ur Leukocyte Esterase Urine WBC (Auto) Urine RBC (Auto) U Hyaline Cast (Auto) U Epithel Cells (Auto) Urine Bacteria (Auto) POC Ur Test Salicylates < 3.0 L Urine Opiates Screen Ur Methadone, Qual Acetaminophen < 3 L Urine Barbiturates Ur Phencyclidine (PCP) U Amphetamin/Meth Scrn MDMA (Ecstasy) Screen U Benzodiazepines Scrn Ur Cocaine Metabolite U Marijuana (THC) Screen Ethyl Alcohol mg/dL < 10.0 SARS-CoV-2, RNA, NAAT NEGATIVE 02/08/22 02/08/22 02/08/22 09:39 09:39 09:44 WBC RBC Hgb Hct MCV MCH MCHC RDW Std Deviation RDW Coeff of Wendy Plt Count MPV Immature Gran % (Auto) Neut % (Auto) Lymph % (Auto) [place] % (Auto) Eos % (Auto) Baso % (Auto) Neut # (Auto) Lymph # (Auto) [place] # (Auto) Eos # (Auto) Baso # (Auto) Immature Gran # (Auto) Sodium Potassium Chloride Carbon Dioxide Anion Gap BUN Creatinine Est Cr Clr Drug Dosing Est GFR ( Amer) Est GFR (Non-Af Amer) BUN/Creatinine Ratio Glucose Calcium Total Bilirubin AST ALT Alkaline Phosphatase Total Protein Albumin Globulin Albumin/Globulin Ratio TSH Urine Color Yellow Urine Appearance Clear Urine pH 6.0 Ur Specific [place] 1.010 Urine Protein Negative Urine Glucose (UA) Negative Urine Ketones Negative Urine Blood Negative Urine Nitrite Negative Urine Bilirubin Negative Urine Urobilinogen Negative Ur Leukocyte Esterase Trace H Urine WBC (Auto) 1-5 Urine RBC (Auto) 0-4 U Hyaline Cast (Auto) 1-5 U Epithel Cells (Auto) 5-10 H Urine Bacteria (Auto) Negative POC Ur Test NEG Salicylates Urine Opiates Screen Neg Ur Methadone, Qual Neg Acetaminophen Urine Barbiturates Neg Ur Phencyclidine (PCP) Neg U Amphetamin/Meth Scrn Neg MDMA (Ecstasy) Screen Pos H U Benzodiazepines Scrn Neg Ur Cocaine Metabolite Neg U Marijuana (THC) Screen Neg Ethyl Alcohol mg/dL SARS-CoV-2, RNA, NAAT Hospital Course (1) Major depression: (2) Post traumatic stress disorder (PTSD): 02/10/22: processed impact of past traumatic events and how this has added to emotional reactivity and periods of impulsivity. Actively denying self-harm and SI. Family meeting held. Completed safety planning. Desires discharge. 02/09/22: Reviewed goals of short term hospitalization vs. assisted therapy as complex trauma takes time to heal, unclear how much of her symptoms are PTSD vs. borderline personality. States she was diagnosed with ADHD 8 years ago. Reviewed that restart of stimulant is deferred to outpatient provider as she reported need for cards consult. She is requesting klonopin hs prn if remains hospitalized. 02/08/22: The patient was admitted to the [facility] ([facility] mental health unit) on q15 min checks (behavioral with suicide precautions) for safety. The patient will participate in group, recreational, and milieu therapies and will be offered additional individual and family sessions as clinically appropriate. continue home medications but favor Vistaril over Klonopin and hold Adderalls. Laxative. Mental Health & Subst Abuse Tx Psychiatrist Name of Psychiatrist: [facility] Psychiatrist's Time of Appointment with Psychiatrist: will be contacted by registration to schedule within 3-5 days Psychiatric Appointment Comment: [phone] Therapist Name of Therapist: [facility] Therapist's Time of Therapist Appointment: will be contacted by registration to schedule within 3-5 days Therapy Appointment Comment: [phone] [place] Executive Staff Assistant Name of Executive Staff Assistant: Kely Michel Post Discharge Appointments Primary Care Physician Name Of Family Doctor: [facility] Outpatient- Pierre Mcqueen Primary Care Date of Appointment with PCP: 02/16/22 Time of Appointment with PCP: 11:00 am Provider Appointment Comment: [facility] [address] Contact Information Discharge Discharge Address: [address] [place] [address] [address], [place] Contact Information Comment: [facility]: [id number] [place] Discharge Plan Discharge Items Patient Disposition: Home - Self-Care Reason For Visit: MHE Discharge Diagnosis: Major Depression Disorder, Post Traumatic Stress Disorder Activity: Resume your previous activity Non-emergency contact: Primary Care Provider and Therapist Call non-emergency contact if: you have any medication questions and your symptoms worsen Follow-up/Referrals: Pierre Mcqueen PA-C [Primary Care Provider] - Diet: Regular Addtl Attending Provider Instructions: Optional mobile apps: -Suicide safety plan -Virtual hope box [place] Nursing Peer Assistance Program: [phone] ext [phone] SPECIAL CARE INSTRUCTIONS: 1. Follow through with your scheduled aftercare appointments. If unable to keep an appointment, please call to reschedule. 2. Take your medication only as prescribed. Medication should not be changed or stopped without the approval of your doctor. In the event of worsening symptoms or concerns about side effects, contact your doctor immediately. 3. Utilize new healthy coping skills, anger management skills, and stress management skills learned during your hospitalization. Journal feelings and process them with a support person. Identify stressors or situations that may result in relapse, deterioration or inappropriate behaviors and develop a plan to deal with those issues. 4. If your coping skills are ineffective and you are in crisis, contact your outpatient providers for direction. If unable to reach your providers, please call the [facility] CRISIS LINE AT , go to the [facility] walk-in center at [address], [address], [place], or go to the closest Emergency Room. 5. Avoid alcohol and un-prescribed drugs. 6. You have been provided with the Mental Health Advance Directives Pamphlet for your review. 7. Your condition is stable for discharge to outpatient level of care, but recovery is an ongoing process. Ifthoughts to harm yourself or others return, follow the safety plan developed during your stay. Planning for a safe return home includes securing weapons. Our treatment team recommends weaponsbe removed from the home until your outpatient provider reassesses your progress. In rare cases where the items themselvescannot be removed, guns and ammunitionshould be secured separatelyand keys stored by a reliable personoutside of the home. If you were admitted on an involuntary commitment, the police or other legal authorities may be involved in this process. AFTERCARE APPOINTMENTS: * Please call your insurance company prior to your scheduled appointment to confirm your aftercare providers are covered. Take your insurance information to your appointments. WHO TO CALL AND WHEN: Medical Emergencies: For questions or emergencies related to your hospital stay, please contact the Inpatient Behavioral Health Unit at [phone]. A intake clinician is on-call 22/04 for the Behavioral Health Unit for emergencies At any time you feel your situation is an emergency, you may also call 911 immediately. Pending Studies at Discharge: No Stand-Alone Forms: My [facility] Medications and DC Order Prescriptions: Continued bupropion HCl [Wellbutrin XL] 300 mg tablet extended release 24 hr 300 mg PO DAILY RF: 0 hydroxyzine HCl 50 mg tablet 50 mg PO TID MDD 150 PRN (Reason: anxiety) RF: 0 pantoprazole 40 mg tablet,delayed release (DR/EC) 40 mg PO DAILY RF: 0 duloxetine [Cymbalta] 60 mg capsule,delayed release(DR/EC) 60 mg PO DAILY RF: 0 clonazepam [Klonopin] 0.5 mg tablet 0.5 mg PO DIRECTED PRN (Reason: Anxiety) RF: 0 cyclobenzaprine 10 mg tablet 10 mg PO DIRECTED MDD 30 PRN (Reason: Muscle Spasm) RF: 0 metoprolol succinate [Toprol XL] 25 mg tablet extended release 24 hr 25 mg PO QPM RF: 0 Discontinued dextroamphetamine-amphetamine [Adderall XR] 25 mg capsule,extended release 24hr 25 mg PO DAILY RF: 0 dextroamphetamine-amphetamine [Adderall] 10 mg tablet 10 mg PO DIRECTED PRN (Reason: See Pharmacy Information) RF: 0 Discharge Orders: Discharge Order (Routine); Ordered 02/10/22 Ordered By: Fay Bravo/Other Patient Handouts: Journaling for Mental Health, Depression: Tips to Help Yourself Admission Data Admit Date/Time: 02/08/22 11:30 Attending Provider: Skylar Matute Admit Provider: Skylar Matute Primary Care Provider: Pierre Mcqueen Other Interventions: Discharge Summary Assessment (RN) Last Done: 02/10/22 14:36 PSY Interdisciplinary Discharge Planning Last Done: 02/10/22 14:36 Coding Level of Care Code 28921 D/C day mgmt > 30 min Diagnoses Major depression F32.9 Post traumatic stress disorder (PTSD) F43.10 Time Spent (min) 45
[2022-02-12 11:31] LABS: MDA negative; MDEA negative; MDMA (Ecstasy) Urine, Confirm negative
== END 2022-02-10 15:48 | disposition home or self-care (01) | DRG 881 ==
LOC: ED 05:47 → MERGE 05:47 → 3S 11:30